=== PATIENT | female | born 2000 | race Caucasian/White ===

== ENCOUNTER → 2021-12-05 | Outpatient (CLI) | payer OTHER | LOC: M PLALAB 09:41 | PROVIDERS: ATTEND Obstetrics & Gynecology | DX: Z34.81 Encounter for supervision of other normal pregnancy, first trimester (principal) ==

== ENCOUNTER → 2021-12-22 | Outpatient (CLI) | payer OTHER | LOC: M WHC 13:09 | PROVIDERS: ATTEND Advanced Practice Midwife | DX: Z34.02 Encounter for supervision of normal first pregnancy, second trimester (principal) ==

== ENCOUNTER → 2021-12-26 | Outpatient (CLI) | payer OTHER ==
[2021-12-26 17:11] LABS: HEMATOCRIT 36.2 % (36.0-47.0); HEMOGLOBIN 12.2 g/dl (12.0-15.5); MEAN CORPUSCULAR HGB CONC 33.7 g/dl (32.0-36.5); MEAN CORPUSCULAR VOLUME 86.2 fl (80.0-96.0); PLATELET COUNT, AUTOMATED 217 10^3/uL (150-450); WHITE BLOOD COUNT 9.7 10^3/uL (4.0-10.0)
[2021-12-26 18:19] LABS: HEPATITIS C VIRUS ABY INDEX 0.1 INDEX (<0.8); HIV 1&2 SCREEN CENTAUR NEGATIVE (NEGATIVE)
[2021-12-26 20:09] LABS: GC DNA AMPLIFICATION NEGATIVE (NEGATIVE)
== END ==
LOC: M PLALAB 15:45
PROVIDERS: ATTEND Obstetrics & Gynecology
DX: Z34.01 Encounter for supervision of normal first pregnancy, first trimester (principal); Z3A.00 Weeks of gestation of pregnancy not specified

== ENCOUNTER → 2022-02-02 | Outpatient (CLI) | payer OTHER | LOC: M WHC 15:01 | PROVIDERS: ATTEND Advanced Practice Midwife | DX: Z34.02 Encounter for supervision of normal first pregnancy, second trimester (principal) ==

== ENCOUNTER → 2022-03-17 | Outpatient (CLI) | payer OTHER ==
[2022-03-17 14:09] LABS: HEMATOCRIT 34.7 % (36.0-47.0); HEMOGLOBIN 11.2 g/dl (12.0-15.5); MEAN CORPUSCULAR HEMOGLOBIN 29.1 pg (27.0-33.0); MEAN CORPUSCULAR HGB CONC 32.3 g/dl (32.0-36.5); MEAN CORPUSCULAR VOLUME 90.1 fl (80.0-96.0); PLATELET COUNT, AUTOMATED 223 10^3/uL (150-450); RED BLOOD COUNT 3.85 10^6/uL (4.00-5.40); WHITE BLOOD COUNT 10.6 10^3/uL (4.0-10.0)
[2022-03-17 16:00] LABS: GC DNA AMPLIFICATION NEGATIVE (NEGATIVE)
== END ==
LOC: M PLALAB 09:44
PROVIDERS: ATTEND Obstetrics & Gynecology
DX: Z36.89 Encounter for other specified antenatal screening (principal); Z3A.24 24 weeks gestation of pregnancy; Z11.3 Encounter for screening for infections with a predominantly sexual mode of transmission

== ENCOUNTER → 2022-03-23 | Outpatient (CLI) | payer OTHER | LOC: M WHC 15:16 | PROVIDERS: ATTEND Obstetrics & Gynecology | DX: Z36.2 Encounter for other antenatal screening follow-up (principal) ==

== ENCOUNTER → 2022-05-18 | Outpatient (REF) | payer OTHER | LOC: M SFHCWAGY 17:15 | PROVIDERS: ATTEND Obstetrics & Gynecology | DX: Z36.85 Encounter for antenatal screening for Streptococcus B (principal); Z3A.00 Weeks of gestation of pregnancy not specified; O22.03 Varicose veins of lower extremity in pregnancy, third trimester ==

== ENCOUNTER 2022-06-12 16:32 | Inpatient (IN) | payer OTHER ==
[~2022-06-12] VITALS: Ht 160 cm; Wt 70.1 kg
[2022-06-12 16:52] VITALS: BP 136/85
[2022-06-12] MEDS ORDERED: PREN1CHW6 PO (17:20)
[2022-06-12] MEDS ORDERED: LACTATED RINGER'S 1000 ML IV STA (18:02)
[2022-06-12] MEDS ORDERED: LIDOCAINE 1% MDV 20ML VIAL INFIL PRN (18:05)
[2022-06-12] MEDS ORDERED: TRANEXAMIC ACID INJection 1,000 MG in NS 100 ML IV PRN (18:05)
[2022-06-12] MEDS ORDERED: OXYTOCIN DRIP 30 UNITS in IV 1 EA IV PRN (18:05)
[2022-06-12] MEDS ORDERED: OXYTOCIN INJ 10 UNITS/ML VIAL (J2590) IM PRN (18:05)
[2022-06-12] MEDS ORDERED: CARBOPROST TROMETHAMINE 250 MCG/ML AMP IM PRN (18:05)
[2022-06-12 18:36] LABS: HEMATOCRIT 33.1 % (36.0-47.0); HEMOGLOBIN 10.8 g/dl (12.0-15.5); MEAN CORPUSCULAR HEMOGLOBIN 27.1 pg (27.0-33.0); MEAN CORPUSCULAR HGB CONC 32.6 g/dl (32.0-36.5); PLATELET COUNT, AUTOMATED 214 10^3/uL (150-450); RED BLOOD COUNT 3.99 10^6/uL (4.00-5.40); WHITE BLOOD COUNT 11.2 10^3/uL (4.0-10.0)
[2022-06-12 19:00] VITALS: BP 118/68
[2022-06-12] MEDS ORDERED: miSOPROStol 50MCG 1/2 TABLET PO SCH (19:25)
[2022-06-12 19:47] VITALS: BP 125/70
[2022-06-12 20:17] LABS: ALT/SGPT 17 U/L (12-78); BILIRUBIN,TOTAL 0.2 MG/DL (0.2-1.0); CREATININE FOR GFR 0.64 MG/DL (0.55-1.30); GLOMERULAR FILTRATION RATE > 60.0 (>60); LDH LACTATE DEHYDROGENASE 141 U/L (84-246); URIC ACID 5.5 MG/DL (2.6-6.0)
[2022-06-12 20:18] VITALS: BP 123/65
[2022-06-12 21:44] VITALS: BP 127/79
[2022-06-12 22:07] LABS: CREATININE,RANDOM URINE 75.3 MG/DL; TOTAL PROTEIN,RANDOM URINE 10.2 MG/DL (0.0-12.0)
[2022-06-13] VITALS (61 sets, daily range): BP systolic 94–173; BP diastolic 51–96
[2022-06-13] MEDS ORDERED: OXYTOCIN DRIP 30 UNITS in IV 1 EA IV SCH ×2 (00:10→14:55)
[2022-06-13] MEDS: LR 1,000 ML IV SCH ×2 (01:28→04:06)
[2022-06-13] MEDS ORDERED: REFLB XX ONE ×2 (03:40→13:29)
[2022-06-13] MEDS ORDERED: FENTANYL 2MCG/ML ROPIVACAINE 0.2% IN 0.9% NACL 100ML IVBAG As Ordered ONE (03:41)
[2022-06-13] MEDS ORDERED: diphenhydrAMINE 50MG/ML VIAL (J1200) IV PRN (04:05)
[2022-06-13] MEDS ORDERED: EPIDURAL/PCA KEYS XX PRN (04:05)
[2022-06-13] MEDS ORDERED: ONDANSETRON 4MG 2ML VIAL IV PRN (04:05)
[2022-06-13] MEDS ORDERED: LR 500 ML IV PRN (04:05)
[2022-06-13] MEDS ORDERED: NALOXONE INJ 0.4MG/1ML VIAL (J2310 PER 1MG) IV PRN (04:05)
[2022-06-13] MEDS: FENTANYL/ROPIVACAINE/NACL BAG 100 ML EPIDURAL SCH ×2 (04:46→13:35)
[2022-06-13] MEDS: ePHEDrine SULFATE 25 MG/5 ML(5MG/ML) SYRINGE IVP PRN ×3 (05:01→05:08)
[2022-06-13] MEDS ORDERED: IBUPROFEN 600MG TAB PO PRN (14:55)
[2022-06-13] MEDS ORDERED: RHOGAM 300 MCG (1500 IU) INJ (J2790) IM SCH (14:55)
[2022-06-13] MEDS ORDERED: METHYLERGONOVINE MALEATE 0.2 MG TAB PO PRN (14:55)
[2022-06-13] MEDS ORDERED: IBUPROFEN 800 MG TAB PO PRN (14:55)
[2022-06-13] MEDS ORDERED: ACETAMINOPHEN TAB 650MG DOSE (2X325MG) PO PRN (14:55)
[2022-06-13 14:59] LABS: CORD GAS ABE A -8.8; CORD GAS HCO3 A 20.5 MEQ/L; CORD GAS O2 SAT A 60.5 %; CORD GAS PCO2 A 56.9 mmHg; CORD GAS PH A 7.175 UNITS; CORD GAS PO2 A 29.7 mmHg; CORD GAS SBC A 16.7 MEQ/L; CORD GAS TCO2 A 22.3 MEQ/L
[2022-06-13 15:02] LABS: CORD GAS ABE V -6.7; CORD GAS HCO3 V 20.2 MEQ/L; CORD GAS O2 SAT V 58.1 %; CORD GAS PCO2 V 45.4 mmHg; CORD GAS PH V 7.267 UNITS; CORD GAS PO2 V 25.1 mmHg; CORD GAS SBC V 18.1 MEQ/L; CORD GAS TCO2 V 21.6 MEQ/L
[2022-06-13] MEDS: DIBUCAINE 1% OINTMENT 30GM TOP PRN (18:26)
[2022-06-14] MEDS: ACETAMINOPHEN 500 MG TAB PO PRN ×3 (01:25→21:14)
[2022-06-14 06:00] VITALS: BP 131/76
[2022-06-14] MEDS: PRENATAL VITAMINS CHEWABLE TABLET PO SCH (08:35)
[2022-06-14] MEDS: DOCUSATE SODIUM 100MG CAPSULE PO PRN ×2 (09:35→21:12)
[2022-06-14 17:15] VITALS: BP 134/82
[2022-06-15 06:00] VITALS: BP 123/76
[2022-06-15] MEDS: DIBUCAINE 1% OINTMENT 30GM TOP PRN (08:14)
[2022-06-15] MEDS: PRENATAL VITAMINS CHEWABLE TABLET PO SCH (08:14)
[2022-06-15] MEDS: ACETAMINOPHEN 500 MG TAB PO PRN (08:14)
[2022-06-15] MEDS ORDERED: MEASLES,MUMPS,RUBELLA VACCINE INJ (MMR-II) (90707) SC.IMMUN ONE (09:00)
[2022-06-15] MEDS ORDERED: ACET-683 PO (11:08)
== END 2022-06-15 12:35 | disposition home or self-care (01) | DRG 807 ==
LOC: M LDI 16:32 → M OBS 06-13 16:46
PROVIDERS: ADMIT Advanced Practice Midwife; ATTEND Obstetrics & Gynecology
PROC: 3E0P7GC Introduction of Other Therapeutic Substance into Female Reproductive, Via Natural or Artificial Opening (ICD-10-PCS; 2022-06-12)
PROC: 10E0XZZ Delivery of Products of Conception, External Approach (ICD-10-PCS; principal; 2022-06-13)
PROC: 0HQ9XZZ Repair Perineum Skin, External Approach (ICD-10-PCS; 2022-06-13)
DX: O13.4 Gestational [pregnancy-induced] hypertension without significant proteinuria, complicating childbirth (principal); Z37.0 Single live birth; Z3A.39 39 weeks gestation of pregnancy; Z88.6 Allergy status to analgesic agent; O69.81X0 Labor and delivery complicated by cord around neck, without compression, not applicable or unspecified; O70.0 First degree perineal laceration during delivery